=== PATIENT | female | born 1990 | race Caucasian/White ===

== ENCOUNTER 2017-04-06 18:39 | Emergency (ER) | payer OTHER ==
[~2017-04-06] VITALS: Ht 162.6 cm; Wt 69.3 kg
[~2017-04-06 18:39] MED LIST: CETI10CA PO; MEDR150D9 IM; MTC5T PO
[2017-04-06 18:51] VITALS: BP 131/87; PULSE 84; RESP 16; O2SAT 99
--- NOTE | 2017-04-06 19:23 | ED.REPORT ---
HPI-Headache Date of Service Apr 06, 2017 ED Provider: Grant Hurst DO Pt is an otherwise healthy 26 year old female who presents to the ED complaining of a worsening headache onset today. She c/o associated mild rash, fever, nausea, SOB, lightheaded, dizziness, whole-bodied hives (onset 1 week) and vomiting. She denies dysuria and any other symptoms. The pt was seen at urgent care and was sent to ED for further treatment. She was given PO Zofran. Pt reports that she smokes THC. She denies history of bad headaches, , and menstruation. She reports that she has a "messed up tooth". 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 Nursing Notes Stated Complaint: HEADACHE,DIZZY, RASH Chief Complaint: Headache Nursing Notes Reviewed: Yes Allergies: Coded Allergies: guaifenesin (Verified Allergy, Unknown, 01/22/15) Uncoded Allergies: TRAZADONE (Allergy, Unknown, 04/06/17) Scheduled Cetirizine HCl (Zyrtec) 10 Mg Capsule 10 MG PO DAILY Medroxyprogesterone Acetate (Depo-Provera) 150 Mg/1 Ml Syringe 150 MG IM q3 months Scheduled PRN Metoclopramide (Metoclopramide) 5 Mg Tab 5 MG PO QID PRN PRN For Nausea General Time Seen by MD: 19:23 Chief Complaint Headache Hx Obtained From: Patient Arrived By: Walk-in Sudden in Onset?: No Onset Occurred: Just prior to arrival Symptom Duration: Since onset Severity: Current: Moderate Severity: Maximum: Moderate Recent Healthcare: No recent doctor visit, No recent hospitalization Similar Sx Previous: No Past Medical History Past Medical History Clostridium difficile colitis endometritis PID ovarian cyst Depression Anxiety C-diff Past Surgical History Newberry tooth extraction Family History Reviewed, not relevant Smoking History Current Every Day Smoker Social History Alcohol Use: Denies alcohol use Drug Use: Denies drug use Ambulatory Status Independent Review of Systems Constitutional: Reports: Fever GI: Reports: Nausea, Vomiting Skin: Reports Rash Neurologic: Reports: Dizziness, Headache, Lightheaded Complete sys rev & neg: except as marked. Respiratory: Denies: Shortness of breath Female: Denies: Dysuria Allergy / Immune: Reports: Hives Physical Exam Initial Vital Signs Vital Signs (First) Date Time Temp Pulse Resp B/P Pulse Ox O2 Delivery O2 Flow Rate FiO2 04/06/17 18:51 37.3 84 16 131/87 99 Room Air Initial VS: Reviewed ENT: Mucous membranes moist, Conjunctiva normal, No scleral icterus Respiratory: Breath sounds normal, Clear to auscultation, No respiratory distress Abdomen / GI: Soft, Non-tender Extremities: Vascular intact, Neuro intact Skin: Warm, Dry, No cyanosis Psychiatric: Mood/affect normal, Behavior normal, Normal thought content General/Constitutional: Awake, Alert, Cooperative, Not toxic appearing Head / Eyes: Atraumatic, Normocephalic, PERRL, EOMI Neck: Atraumatic, Full range of motion No nucal rigidity, no meningitis Neurologic: Oriented X3, Speech NL, No motor deficits, No sensory deficits, CN II - XII intact Cardiovascular: Heart rate NL, Regular rhythm Faint venous hum. Interpretation & Diagnostics Lab Results Interpretation Result Diagram: 04/06/17192404/06/171924 Test 04/06/17 19:25 04/06/17 20:40 White Blood Count 12.3th/mm3 (3.8-10.1) Red Blood Count 4.99mil/mm3 (3.90-5.20) Hemoglobin 15.8g/dL (12.0-15.6) Hematocrit 45.7% (35.0-46.0) Mean Corpuscular Volume 91.6fL (81-100) Mean Corpuscular Hemoglobin 31.7pg (27.0-35.0) Mean Corpuscular Hemoglobin Concent 34.6% (32.0-37.0) Red Cell Distribution Width 12.8% (12.3-15.4) Platelet Count 181bil/L (150-400) Neutrophils (%) (Auto) 50.8% (40-74) Lymphocytes (%) (Auto) 41.3% (14-46) Monocytes (%) (Auto) 5.0% (4-12) Eosinophils (%) (Auto) 2.4% (0-5) Basophils (%) (Auto) 0.3% (0-3) Sodium Level 139mEq/L (134-144) Potassium Level 3.8mEq/L (3.5-5.2) Chloride Level 101mEq/L (97-108) Carbon Dioxide Level 21mmol/L (18-29) Blood Urea Nitrogen 10mg/dL (6-20) Creatinine 0.77mg/dL (0.57-1.00) Estimat Glomerular Filtration Rate 132mL/min (>59) Glucose Level 86mg/dL (60-99) Calcium Level 9.9mg/dL (8.5-10.1) Total Bilirubin 0.6mg/dL (0.0-1.2) Aspartate Amino Transf (AST/SGOT) 30U/L (0-50) Alanine Aminotransferase (ALT/SGPT) 30U/L (0-32) Alkaline Phosphatase 73U/L (25-150) C-Reactive Protein 0.1mg/dL (0.0-0.5) Total Protein 7.6g/dL (6.4-8.4) Albumin 4.8g/dL (3.4-5.0) Hold Lopez Top Tube Received (Received) Hold Urine Received (Received) CT Head Interpretation IMPRESSION: No CT evidence of acute intracranial pathology. Dictated by: Oscar Real M.D. on 04/06/2017 at 20:18 Study: Head CT no contrast Interpretation / Wet Read by: Interpret - Radiologist Re-Eval/Medical Decision Med Decision/Clinical Course With the elevated white blood cell count I recommended a lumbar puncture to exclude meningitis and subarachnoid hemorrhage. Some nausea wanted to wait to her boyfriend arrived. I went back in after he arrived and induced myself. I again explained the procedure and the reasons for her. Neither of them want her to undergo this test tonight. He understand that she still could have a life-threatening illness they will take all responsibility for this. She is of sound mind and somebody she can certainly make her own decisions and I do not feel that I could force her to undergo lumbar puncture testing. She will return if she changes her mind or if she has any new or worrisome symptoms. Close follow-up recommended. Source of Hx: Old records Re-Evaluation/Progress #1: Time of Eval: 21:00 )( Patient Status: Condition improved Re-Evaluation/Progress Note: Pt rechecked. Pt wants to wait until her boyfriend arrives to discuss option of spinal tap. All questions were answered. Re-Evaluation/Progress #2: Time of Eval: 21:30 )( Patient Status: Condition improved Re-Evaluation/Progress Note: Pt rechecked. She declines lumbar puncture and is feeling much better. Informed pt of plan for discharge. Pt understands and agrees with plan for discharge. F/U instructions and RTER warnings given. All questions addressed. Counseled Regarding: Diagnosis, Lab results, Need for follow-up, When/why to return to ED Discharge & Departure Shift Change Sign-Out Response to Therapy: Improved Impression: Primary Impression: Headache Headache type: unspecified Headache chronicity pattern: acute headache Intractability: not intractable Qualified Code: R51 - Headache Disposition: Home Discharge Condition All VS Reviewed: Yes Condition: Stable Patient Instructions: Acute Headache (ED) Additional Instructions: The CT scan was normal however your white blood cell count is elevated and a spinal tap is recommended to exclude infection and subtle bleeding. So therefore it is imperative that you return if the headache comes back or if you develop a fever or change your mind about the procedure. Rest tonight. Do not drive. Call your Dr. tomorrow to set up a follow up appointment. It was very nice meeting you. Referrals: Juan Cardona MD (PCP) Tmimyibe Attestation Portions of this note were transcribed by Raine Carrasco. I, Dr. Hurst personally performed the history, physical exam and medical decision-making; I reviewed and confirmed the accuracy of the information in the transcribed note. Signed by: Cedric Tinoco, 04/06/17 and 21:00. copies to: Juan Cardona MD, Todd P DO Apr 06, 2017 19:23 Raine Hardy Apr 06, 2017 19:40
[2017-04-06] MEDS ORDERED: 0.9% Sodium Chloride 1,000 ML IV ONE (19:30)
[2017-04-06 19:35] LABS: BASOPHILS % (AUTO) 0.3 % (0-3); EOSINOPHILS % (AUTO) 2.4 % (0-5); Mean Corpuscular Hemoglobin 31.7 pg (27.0-35.0); Mean Corpuscular Volume 91.6 fL (81-100); NEUTROPHILS % (AUTO) 50.8 % (40-74); Platelet Count 181 bil/L (150-400)
[2017-04-06] MEDS ORDERED: Haloperidol 5 mg/mL Inj IVPUSH ONE (19:45)
[2017-04-06] MEDS ORDERED: Dexamethasone 10 mg/mL Inj IVPUSH ONE (19:45)
--- NOTE | 2017-04-06 20:27 | DRSVH ---
PROCEDURE: CT BRAIN WITHOUT CONTRAST ([id number]) INDICATIONS: severe headache TECHNIQUE: Noncontrast 4.5 mm thick angled axial sections acquired from the foramen magnum to the vertex, with c oronal reformats. COMPARISON: [facility], CT, ABD/PELVIS W/CON (PNL), 07/10/2014, 4:47. FINDINGS: Image quality: Excellent. CSF spaces: Basal cisterns are patent. No extra-axial fluid collections. Ventricles are normal in size and shape. Brain: No midline shift. No intracranial masses or hemorrhage. Lucero-white matter interface is norm al. Skull and face: Calvarium and visualized facial bones are intact, without suspicious lesions. Sinuses: Visualized sinuses and mastoids are clear. IMPRESSION: No CT evidence of acute intracranial pathology. Dictated by: Oscar Real M.D. on 04/06/2017 at 20:18 Approved by: Oscar Real M.D. on 04/06/2017 at 20:20
[2017-04-06 22:26] VITALS: BP 123/78; PULSE 78; RESP 16; O2SAT 99
== END 2017-04-06 22:27 | disposition home or self-care (01) ==
LOC: SED 18:39
DX: R51 Headache (principal); L50.9 Urticaria, unspecified; R50.9 Fever, unspecified; R11.0 Nausea; R06.02 Shortness of breath; R42 Dizziness and giddiness; D72.829 Elevated white blood cell count, unspecified; F41.8 Other specified anxiety disorders; F17.200 Nicotine dependence, unspecified, uncomplicated; Z88.8 Allergy status to other drugs, medicaments and biological substances
CPT/HCPCS: 36415; 70450; 80053; 85025; 86140; 96361; 96374; 96375; 99285; J1100; J1200; J1630; J2060; J7030

== ENCOUNTER 2017-07-13 11:49 | Emergency (ER) | payer OTHER ==
[~2017-07-13] VITALS: Ht 162.6 cm; Wt 73.6 kg
[2017-07-13 11:55] VITALS: BP 122/62; PULSE 96; RESP 18; O2SAT 100
[2017-07-13] MEDS ORDERED: 0.9% Sodium Chloride 1,000 ML IV ONE (12:38)
[2017-07-13] MEDS ORDERED: Ondansetron 2 mg/mL 2 mL Inj IVPUSH ONE (12:40)
--- NOTE | 2017-07-13 12:46 | ED.REPORT ---
HPI-Abd Pain F Under 40 Date of Service Jul 13, 2017 ED Provider: Ricardo Maya PA-C Leigh is a 27-year-old female with a history of PID presenting to the emergency department with a chief complaint of lower abdominal pain. Patient states that it began gradually approximately 5 days ago. She describes the pain as stabbing , bilateral and radiating to her lower back. Associated initially with vomiting and diarrhea which is now resolved. Patient complains of ongoing chills. Patient reports some vaginal spotting which she associates with recent Depo- Provera shot 9 days ago. She has been using Depo-Provera for several years. Denies vaginal discharge, melena, hematochezia, hematuria, dysuria, frequency. Denies history of abdominal surgeries. She has little concern for sexually transmitted disease. Nursing Notes Stated Complaint: SEVERE ABDOMINAL PAIN Chief Complaint: Female Abdominal Pain Nursing Notes Reviewed: Yes Allergies: Coded Allergies: guaifenesin (Verified Allergy, Unknown, 07/13/17) Uncoded Allergies: TRAZADONE (Allergy, Unknown, 04/06/17) Scheduled Cetirizine HCl (Zyrtec) 10 Mg Capsule 10 MG PO DAILY Doxycycline Monohyd (Doxycycline Monohyd) 100 Mg Capsule 100 MG PO BID Medroxyprogesterone Acetate (Depo-Provera) 150 Mg/1 Ml Syringe 150 MG IM q3 months Scheduled PRN Hydrocodone-Acetaminophen 5-325 mg (Hydrocodone-Acetaminophen 5-325 mg) 1 Each Tablet 1-2 TABLET PO QID PRN PRN For Pain Metoclopramide (Metoclopramide) 5 Mg Tab 5 MG PO QID PRN PRN For Nausea General Time Seen by MD: 12:28 Chief Complaint Abdominal pain Past Medical History Past Medical History Clostridium difficile colitis endometritis PID ovarian cyst Depression Anxiety C-diff Past Surgical History [place] tooth extraction Family History Reviewed, not relevant Smoking History Current Every Day Smoker Social History Alcohol Use: Denies alcohol use Drug Use: Denies drug use Ambulatory Status Independent Review of Systems Negative unless stated otherwise in history of present illness Physical Exam General: Well appearing, well developed, well nourished, moderate distress, tearful. Head: Atraumatic, normocephalic. Eyes: No scleral icterus or injection. No discharge. Vision grossly intact. ENT: Voice clear, hearing grossly intact. Respiratory: Regular rate and rhythm. Breath sounds present, clear to auscultation and equal bilaterally. No respiratory distress. No increased work of breathing, speaks in complete sentences. Cardiovascular: Regular rate and rhythm, without murmur, gallop or rub. No pedal edema. Gastrointestinal: Abdomen flat and normal to inspection. Moderate lower abdominal tenderness without guarding or rebound. Bowel sounds normal. : Normal external genitalia without discharge. Slight white discharge noted in vaginal canal. Cervix slightly erythematous. No bleeding or clots. Minimal CMT, adnexal tenderness. No masses felt. Performed with storage consultant. Back: Normal to inspection, negative midline spinous process tenderness, negative CVA tenderness Skin: Warm and dry. Neurological: Grossly nonfocal. Psychological: Alert and oriented. Speech appropriate, linear and logical. Behavior appropriate. Initial Vital Signs Vital Signs (First) Date Time Temp Pulse Resp B/P Pulse Ox O2 Delivery O2 Flow Rate FiO2 07/13/17 11:55 36.6 96 18 122/62 100 Room Air Interpretation & Diagnostics Interpretation & Diagnostics: Dip is negative Microbiology TIMOTEO WET PREP VAG OR REC Final 07/13/17-1529 WBCS MANY YEAST NONE SEEN CLUE CELLS NONE SEEN TRICHOMONAS NONE SEEN Lab Results Interpretation Result Diagram: 07/13/17 1251 07/13/17 1251 Test 07/13/17 12:51 07/13/17 13:00 07/13/17 16:33 White Blood Count 10.8th/mm3 (3.8-10.1) Red Blood Count 4.63mil/mm3 (3.90-5.20) Hemoglobin 14.9g/dL (12.0-15.6) Hematocrit 42.3% (35.0-46.0) Mean Corpuscular Volume 91.4fL (81-100) Mean Corpuscular Hemoglobin 32.2pg (27.0-35.0) Mean Corpuscular Hemoglobin Concent 35.2% (32.0-37.0) Red Cell Distribution Width 12.5% (12.3-15.4) Platelet Count 183bil/L (150-400) Neutrophils (%) (Auto) 57.2% (40-74) Lymphocytes (%) (Auto) 36.7% (14-46) Monocytes (%) (Auto) 4.3% (4-12) Eosinophils (%) (Auto) 1.4% (0-5) Basophils (%) (Auto) 0.2% (0-3) Sodium Level 136mEq/L (134-144) Potassium Level 4.0mEq/L (3.5-5.2) Chloride Level 101mEq/L (97-108) Carbon Dioxide Level 23mmol/L (18-29) Blood Urea Nitrogen 9mg/dL (6-20) Creatinine 0.61mg/dL (0.57-1.00) Estimat Glomerular Filtration Rate 171mL/min (>59) Glucose Level 85mg/dL (60-99) Calcium Level 9.5mg/dL (8.5-10.1) Total Bilirubin 0.5mg/dL (0.0-1.2) Aspartate Amino Transf (AST/SGOT) 19U/L (0-50) Alanine Aminotransferase (ALT/SGPT) 22U/L (0-32) Alkaline Phosphatase 69U/L (25-150) Total Protein 6.8g/dL (6.4-8.4) Albumin 4.6g/dL (3.4-5.0) Lipase 26U/L (13-60) Hold Lopez Top Tube Received (Received) Urine Color Yellow (YELLOW) Urine Appearance Hazy (CLEAR,HAZY) Urine pH 7.5 (5.0-8.0) Urine Specific [place] 1.015 (1.003-1.035) Urine Protein Negativemg/dL (NEG,TRACE) Urine Glucose (UA) Negativemg/dL (NEGATIVE) Urine Ketones Negativemg/dL (NEGATIVE) Urine Occult Blood Large (NEGATIVE) Urine Nitrite Negative (NEGATIVE) Urine Bilirubin Negative (NEGATIVE) Urine Urobilinogen Normalmg/dL (NORMAL) Urine Leukocyte Esterase Small (NEGATIVE) Urine RBC 0-2/hpf (0-2) Urine WBC 0-5/hpf (0-5) Urine Epithelial Cells Many/hpf (NONE-MOD) Urine Crystals None seen (NONE SEEN) Urine Bacteria Moderate/hpf (NONE-FEW) Urine Hyaline Casts None/lpf (NONE) Urine Granular Casts None seen (NONE SEEN) Urine Waxy Casts None seen (NONE SEEN) Urine Red Blood Cell Casts None seen (NONE SEEN) Urine White Blood Cell Casts None seen (NONE SEEN) Urine Mucus None seen (None Seen) Urine Trichomonas None seen (NONE SEEN) Urine Yeast None (NONE SEEN) Urinalysis Comment None Urine Culture Reflexed Indicated Re-Eval/Medical Decision Med Decision/Clinical Course 27-year-old female with a history of PID presents to the emergency department for a chief complaint of lower abdominal pain, which began gradually about 5 days ago. Described as stabbing, bilateral, radiating to the back. Initially associated with vomiting and diarrhea which is resolved. Patient complains of chills. Denies vaginal bleeding/discharge but admits to spotting which she attributes to her recent Depo-Provera update. She denies history of abdominal surgeries, has low concern for sexually transmitted disease. Physical examination reveals a flat abdomen, mild lower abdominal tenderness without guarding or rebound. Negative CVA tenderness. Normal vital signs. Pelvic examination, performed with a storage consultant reveals slight white discharge, slightly erythematous cervix, mild CMT, adnexal tenderness. otherwise normal. CBC reveals slight leukocytosis at 10.8. CMP is normal. Urinalysis is positive for occult blood, small leukocyte esterase, many epithelial cells. Negative for nitrates, white blood cells. I find is unconvincing for UTI in the absence of urinary symptoms. Wet prep is positive for white blood cells, otherwise normal. Gen-Probe is sent. Findings are concerning for PID. Less concern for ectopic , ovarian torsion, tubo-ovarian abscess. I discussed the case with . We agree treatment for gonorrhea and chlamydia, gynecology follow-up is appropriate. Advise regarding [id number] analgesia and provide a prescription for a small amount of [place] to supplement with precautions. Advised regarding primary care follow-up, provided emergency return precautions. Patient verbalized understanding of, and consent to, the plan. Discharge & Departure Primary Impression: Pelvic inflammatory disease Disposition: Home Discharge Condition All VS Reviewed: Yes Condition: Stable Patient Instructions: Pelvic Inflammatory Disease (ED) Additional Instructions: Evaluation in the emergency department for abdominal pain includes interview, physical examination and blood work which are concerning for infection in your uterus called pelvic inflammatory disease. We have given you a shot of antibiotics and a first dose of oral antibiotics here in the emergency department. I'll write you a prescription for doxycycline 100 mg to be taken twice a day for the next 2 weeks. Please be sure to take every dose Pain can be treated 1000 mg of acetaminophen taken every 6 hours. I have written a prescription for a small amount of hydrocodone/acetaminophen 5/325 mg which can be SUBSTITUTED for the Tylenol to treat more severe pain. Do not take them together, and do not drink alcohol or operate a vehicle within 4 hours of taking this medication. Follow-up with your primary women's health provider at [facility] in the next week or so to be sure this is progressing as expected. Return to the emergency department for any new or worsening symptoms including increasing pain, vomiting, fever, bleeding. Referrals: [facility] Provider for APC: Rogelio Rhodes MD Attending Statment I saw and evaluated the patient in conjunction with the PA. I agree with the plan and findings as documented above. In brief, 27-year-old female presenting to the ED for evaluation of lower abdominal pain. Well appearing, no acute distress. Nonlabored respirations. Good peripheral perfusion. RRR. No rebound tenderness or guarding. Patient states that she has had similar symptoms with PID in the past when asked by me. We discussed that while a more serious cause for her pain such as ovarian torsion or appendicitis could not be completely ruled out without doing advanced imaging or further workup, it seemed less likely given her description and the findings on exam above. She is comfortable with discharge home and returning to the ED if symptoms change, persist, or worsen, and agreed to be followed up tomorrow for reassessment. Given this, plan discharge home w/ careful return precautions. Patient agreeable to plan as stated, no further questions. Ricardo Maya PA-C Jul 13, 2017 12:46 Rogelio Rhodes MD Jul 13, 2017 16:08
[2017-07-13] MEDS: HYDROmorphone 0.5 mg/0.5 mL iSecure Syringe IVPUSH PRN ×4 (12:57→16:45)
[2017-07-13 12:58] LABS: BASOPHILS % (AUTO) 0.2 % (0-3); EOSINOPHILS % (AUTO) 1.4 % (0-5); MONOCYTES % (AUTO) 4.3 % (4-12); Mean Corpuscular Hemoglobin 32.2 pg (27.0-35.0); Mean Corpuscular Volume 91.4 fL (81-100); NEUTROPHILS % (AUTO) 57.2 % (40-74); Platelet Count 183 bil/L (150-400)
[2017-07-13 13:24] LABS: APPEARANCE,URINE HAZY (CLEAR,HAZY); COLOR,URINE YELLOW (YELLOW); OCCULT BLOOD,URINE LARGE (NEGATIVE); PH,URINE 7.5 (5.0-8.0); UROBILINOGEN,URINE NORMAL (NORMAL)
[2017-07-13] MEDS ORDERED: CEFTRIAXONE IV ONE (16:15)
[2017-07-13] MEDS ORDERED: DEXTROSE 5% IV ONE (16:15)
[2017-07-13] MEDS ORDERED: HYDR-4003 PO (16:27)
[2017-07-13] MEDS ORDERED: DOXY100C43 PO (16:27)
[2017-07-13 16:45] VITALS: BP 143/106; PULSE 76; RESP 18; O2SAT 98
== END 2017-07-13 17:00 | disposition home or self-care (01) ==
LOC: SED 11:49
DX: N73.9 Female pelvic inflammatory disease, unspecified (principal); F41.8 Other specified anxiety disorders; F17.200 Nicotine dependence, unspecified, uncomplicated; Z88.8 Allergy status to other drugs, medicaments and biological substances
CPT/HCPCS: 36415; 80053; 81000; 81025; 83690; 85025; 87086; 87088; 87210; 87491; 87591; 96361; 96365; 96375; 96376; 99285; J0696; J1170; J2405; J7030